=== PATIENT | female | born 1985 | race Caucasian/White ===

== ENCOUNTER → 2017-12-26 | Outpatient (CLI) | payer MEDICARE, MEDICAID | LOC: MAMMO 12:37 | DX: N63.20 Unspecified lump in the left breast, unspecified quadrant (principal); R59.0 Localized enlarged lymph nodes; N64.4 Mastodynia ==

== ENCOUNTER → 2018-01-22 | Outpatient (CLI) | payer MEDICARE, MEDICAID | LOC: CARDREHAB 10:56 | DX: R07.9 Chest pain, unspecified (principal) ==

== ENCOUNTER 2018-02-28 20:43 | Emergency (ER) | payer MEDICARE, MEDICAID ==
[~2018-02-28] VITALS: Ht 152.4 cm; Wt 81.8 kg
[2018-02-28 21:56] LABS: BASO # 0.1 (0.02-0.10); EOS # 0.3 (0.04-0.40); EOS % 2.4 % (1.0-5.0); HEMATOCRIT 40.7 % (37.0-47.0); HEMOGLOBIN 13.4 g/dL (12.5-16.0); LYMPH# 3.1 (1.50-4.00); MEAN CELL VOLUME 84 fl (78-100); MEAN CORPUSCULAR HEMOGLOBIN 28 pg (27-31); MEAN CORPUSCULAR HGB CONC 33 g/dL (33-37); MEAN PLATELET VOLUME 10.4 fl (7.4-10.4); MONO # 0.7 (0.20-0.80); NEU # 7.8 (1.40-6.50); PLATELET COUNT 256 K/mm3 (130-400); RED BLOOD COUNT 4.82 M/mm3 (4.10-5.30); WHITE BLOOD COUNT 12.1 K/mm3 (4.8-10.8)
[2018-02-28 22:08] LABS: CALCIUM 9.8 mg/dL (8.4-10.2); POTASSIUM 3.8 mmol/L (3.6-5.0)
[2018-02-28] MEDS ORDERED: LEVOTHYROXIN0.025 MG PO (22:37)
[2018-02-28] MEDS ORDERED: LATANOPROST 2.2.5 ML OU (22:37)
[2018-02-28] MEDS ORDERED: GLIPIZIDE ER10 M1 PO (22:37)
[2018-02-28] MEDS ORDERED: COMBIGAN 0.2%-0.5 ML OP (22:37)
[2018-02-28] MEDS ORDERED: METFOMIN HYDRO850 MG PO (22:44)
[2018-03-01] MEDS ORDERED: FIORICET 325 MG1 TAB PO (07:16)
[2018-03-01 09:25] VITALS: BP 124/80
== END 2018-03-01 09:30 | disposition home or self-care (01) ==
LOC: ED 20:43
PROVIDERS: Family Medicine
DX: I10 Essential (primary) hypertension (principal); R51 Headache; E11.9 Type 2 diabetes mellitus without complications; E78.5 Hyperlipidemia, unspecified; H40.9 Unspecified glaucoma; Z79.84 Long term (current) use of oral hypoglycemic drugs; Z79.899 Other long term (current) drug therapy
CPT/HCPCS: J0595; J1885; J2060; J2405

== ENCOUNTER 2018-03-28 10:00 | Outpatient (RCR) | payer MEDICARE, MEDICAID ==
[~2018-03-28 10:00] MED LIST: COMBIGAN 0.2%-0.5 ML OP; FIORICET 325 MG1 TAB PO; GLIPIZIDE ER10 M1 PO; LATANOPROST 2.2.5 ML OU; LEVOTHYROXIN0.025 MG PO; METFOMIN HYDRO850 MG PO
== END 2018-03-28 10:30 | disposition home or self-care (01) ==
LOC: PT 10:00
DX: M25.551 Pain in right hip (principal)
CPT/HCPCS: G8978-GP; G8979-GP

== ENCOUNTER → 2018-04-21 | Outpatient (CLI) | payer MEDICARE, MEDICAID | LOC: RAD 13:42 | DX: M25.551 Pain in right hip (principal) ==

== ENCOUNTER → 2018-05-05 | Outpatient (CLI) | payer MEDICARE, MEDICAID | LOC: RAD 12:00 | DX: M25.551 Pain in right hip (principal); G89.29 Other chronic pain ==

== ENCOUNTER → 2018-06-09 | Outpatient (CLI) | payer MEDICARE, MEDICAID | LOC: PT 10:53 | DX: M85.851 Other specified disorders of bone density and structure, right thigh (principal); M94.8X5 Other specified disorders of cartilage, thigh ==

== ENCOUNTER → 2018-06-16 | Outpatient (CLI) | payer MEDICARE, MEDICAID | LOC: RAD 12:35 | DX: M79.89 Other specified soft tissue disorders (principal); Z98.890 Other specified postprocedural states ==

== ENCOUNTER 2018-06-17 10:54 | Outpatient (RCR) | payer MEDICARE, MEDICAID | END 2018-06-17 12:00 | LOC: PT 10:54 | DX: S73.101A Unspecified sprain of right hip, initial encounter (principal); Z96.641 Presence of right artificial hip joint ==

== ENCOUNTER 2018-08-28 11:00 | Outpatient (RCR) | payer MEDICARE, MEDICAID | END 2018-08-28 11:30 | LOC: PT 11:00 | DX: Z98.890 Other specified postprocedural states (principal) ==

== ENCOUNTER → 2018-12-01 | Outpatient (CLI) | payer MEDICARE, MEDICAID ==
[2018-12-01 12:27] LABS: BASO # 0.1 (0.02-0.10); EOS # 0.2 (0.04-0.40); EOS % 2.4 % (1.0-5.0); HEMATOCRIT 43.1 % (37.0-47.0); HEMOGLOBIN 13.9 g/dL (12.5-16.0); LYMPH# 2.3 (1.50-4.00); MEAN CELL VOLUME 84 fl (78-100); MEAN CORPUSCULAR HEMOGLOBIN 27 pg (27-31); MEAN CORPUSCULAR HGB CONC 32 g/dL (33-37); MEAN PLATELET VOLUME 9.5 fl (7.4-10.4); MONO # 0.7 (0.20-0.80); NEU # 5.5 (1.40-6.50); PLATELET COUNT 392 K/mm3 (130-400); RED BLOOD COUNT 5.13 M/mm3 (4.10-5.30); WHITE BLOOD COUNT 8.8 K/mm3 (4.8-10.8)
[2018-12-01 12:58] LABS: ALBUMIN 4.9 g/dL (3.5-5.0); POTASSIUM 4.1 mmol/L (3.5-5.1)
[2018-12-01 12:59] LABS: CALCIUM 10.2 mg/dL (8.3-10.5)
[2018-12-01 13:01] LABS: TOTAL PROTEIN 8.5 g/dL (6.4-8.3)
[2018-12-01 13:02] LABS: TOTAL BILIRUBIN 0.3 mg/dL (0.2-1.2)
== END ==
LOC: RAD 12:10
PROVIDERS: Family Medicine
DX: Z00.00 Encounter for general adult medical examination without abnormal findings (principal); E03.9 Hypothyroidism, unspecified; E11.9 Type 2 diabetes mellitus without complications; E78.5 Hyperlipidemia, unspecified; E55.0 Rickets, active; E55.9 Vitamin D deficiency, unspecified

== ENCOUNTER → 2018-12-15 | Outpatient (CLI) | payer MEDICARE, MEDICAID | LOC: RAD 09:54 | DX: R06.00 Dyspnea, unspecified (principal) ==

== ENCOUNTER → 2018-12-26 | Outpatient (CLI) | payer MEDICARE, MEDICAID | LOC: RAD 10:45 | DX: J98.4 Other disorders of lung (principal); N20.0 Calculus of kidney; D35.02 Benign neoplasm of left adrenal gland ==

== ENCOUNTER 2019-05-24 18:34 | Emergency (ER) | payer MEDICARE, MEDICAID ==
[~2019-05-24] VITALS: Ht 149.9 cm; Wt 59.1 kg
[~2019-05-24 18:34] MED LIST changes: -COMBIGAN 0.2%-0.5 ML OP; +COMBIGAN 0.2%-0.5 ML OU
[2019-05-24] MEDS ORDERED: TYLENOL EXTRA500 M2 PO (18:47)
[2019-05-24 19:13] LABS: PH-URINE 5.5 (5.0 - 8.0); URINE APPEARANCE CLEAR; URINE BILIRUBIN NEGATIVE (NEGATIVE); URINE BLOOD NEGATIVE (NEGATIVE); URINE COLOR YELLOW; URINE GLUCOSE NEGATIVE (NEGATIVE); URINE KETONE NEGATIVE (NEGATIVE); URINE LEUKOCYTE ESTERASE NEGATIVE (NEGATIVE); URINE NITRATE NEGATIVE (NEGATIVE); URINE PROTEIN(semi-quant) 1+ mg/dL (NEGATIVE); URINE UROBILINOGEN NORMAL (NORMAL)
[2019-05-24 19:27] LABS: BASO # 0.1 (0.02-0.10); EOS # 0.3 (0.04-0.40); HEMATOCRIT 44.5 % (37.0-47.0); HEMOGLOBIN 14.2 g/dL (12.5-16.0); LYMPH# 2.7 (1.50-4.00); MEAN CELL VOLUME 84 fl (78-100); MEAN CORPUSCULAR HEMOGLOBIN 27 pg (27-31); MEAN CORPUSCULAR HGB CONC 32 g/dL (33-37); MEAN PLATELET VOLUME 9.8 fl (7.4-10.4); MONO # 0.7 (0.20-0.80); NEU # 5.6 (1.40-6.50); PLATELET COUNT 402 K/mm3 (130-400); RED BLOOD COUNT 5.28 M/mm3 (4.10-5.30); RED CELL DISTRIBUTION WIDTH 13.5 % (11.5-14.5); WHITE BLOOD COUNT 9.4 K/mm3 (4.8-10.8)
[2019-05-24 19:37] LABS: POTASSIUM 4.4 mmol/L (3.5-5.1)
[2019-05-24 19:39] LABS: CALCIUM 10.1 mg/dL (8.3-10.5)
[2019-05-24 20:14] VITALS: BP 140/89
== END 2019-05-24 20:14 | disposition home or self-care (01) ==
LOC: ED 18:34
PROVIDERS: Family Medicine
DX: R31.9 Hematuria, unspecified (principal); R10.31 Right lower quadrant pain; E11.9 Type 2 diabetes mellitus without complications; E78.5 Hyperlipidemia, unspecified; Z79.84 Long term (current) use of oral hypoglycemic drugs; Z90.49 Acquired absence of other specified parts of digestive tract; Z90.710 Acquired absence of both cervix and uterus

== ENCOUNTER → 2019-10-22 | Outpatient (CLI) | payer MEDICARE, MEDICAID ==
[~2019-10-22] MED LIST changes: +TYLENOL EXTRA500 M2 PO
== END ==
LOC: RAD 08:26
DX: M25.551 Pain in right hip (principal); Z96.641 Presence of right artificial hip joint; Z90.710 Acquired absence of both cervix and uterus

== ENCOUNTER → 2020-01-12 | Outpatient (CLI) | payer MEDICARE, MEDICAID | LOC: VAS 10:11 → RAD 10:15 | DX: Z13.6 Encounter for screening for cardiovascular disorders (principal); M79.605 Pain in left leg ==

== ENCOUNTER 2020-03-01 11:00 | Outpatient (RCR) | payer MEDICARE, MEDICAID | END 2020-03-01 11:30 | disposition home or self-care (01) | LOC: PT 11:00 | DX: Z98.890 Other specified postprocedural states (principal) ==

== ENCOUNTER 2020-12-07 09:23 | Outpatient (RCR) | payer MEDICARE, MEDICAID | END 2021-03-07 | disposition home or self-care (01) | LOC: PT | DX: M25.561 Pain in right knee (principal) ==

== ENCOUNTER → 2021-02-14 | Outpatient (CLI) | payer MEDICARE, MEDICAID | LOC: RAD 08:14 | DX: K76.0 Fatty (change of) liver, not elsewhere classified (principal) ==

== ENCOUNTER → 2021-02-27 | Outpatient (CLI) | payer MEDICARE, MEDICAID | LOC: MAMMO 02-23 12:15 | DX: R59.0 Localized enlarged lymph nodes (principal) ==

== ENCOUNTER → 2021-10-05 | Outpatient (CLI) | payer MEDICARE, MEDICAID | LOC: LAB 16:47 | DX: Z20.822 Contact with and (suspected) exposure to COVID-19 (principal) ==

== ENCOUNTER → 2021-10-20 | Outpatient (CLI) | payer MEDICARE, MEDICAID | LOC: LAB 19:46 | DX: Z20.822 Contact with and (suspected) exposure to COVID-19 (principal) ==

== ENCOUNTER → 2021-10-25 | Outpatient (CLI) | payer MEDICARE, MEDICAID | LOC: LAB 13:10 | DX: Z20.822 Contact with and (suspected) exposure to COVID-19 (principal) ==

== ENCOUNTER → 2021-11-01 | Outpatient (CLI) | payer MEDICARE, MEDICAID ==
[2021-11-01 11:17] LABS: ALBUMIN 4.3 g/dL (3.5-5.0); POTASSIUM 4.2 mmol/L (3.5-5.1)
[2021-11-01 11:19] LABS: CALCIUM 9.9 mg/dL (8.3-10.5)
[2021-11-01 11:20] LABS: TOTAL PROTEIN 7.4 g/dL (6.4-8.3)
[2021-11-01 11:22] LABS: TOTAL BILIRUBIN 0.3 mg/dL (0.2-1.2)
== END ==
LOC: LAB 10:52
PROVIDERS: Nurse Practitioner Family
DX: E11.59 Type 2 diabetes mellitus with other circulatory complications (principal); K76.0 Fatty (change of) liver, not elsewhere classified

== ENCOUNTER → 2022-02-12 | Outpatient (CLI) | payer MEDICARE, MEDICAID ==
[2022-02-12 08:57] LABS: ALBUMIN 4.2 g/dL (3.5-5.0)
[2022-02-12 08:58] LABS: CALCIUM 9.3 mg/dL (8.3-10.5)
[2022-02-12 09:01] LABS: TOTAL BILIRUBIN 0.3 mg/dL (0.2-1.2)
== END ==
LOC: LAB 08:26
PROVIDERS: Nurse Practitioner Family
DX: E11.59 Type 2 diabetes mellitus with other circulatory complications (principal); K76.0 Fatty (change of) liver, not elsewhere classified

== ENCOUNTER 2022-05-02 12:55 | Outpatient (RCR) | payer MEDICARE, MEDICAID | END 2022-05-08 | disposition home or self-care (01) | LOC: PT | DX: M75.112 Incomplete rotator cuff tear or rupture of left shoulder, not specified as traumatic (principal) ==

== ENCOUNTER → 2022-05-04 | Outpatient (CLI) | payer OTHER, MEDICAID ==
[2022-05-04 09:00] LABS: BASO # 0.05 K/mm3 (0.02-0.10); EOS # 0.28 K/mm3 (0.04-0.40); EOS % 3.2 % (1.0-5.0); HEMATOCRIT 40.8 % (37.0-47.0); HEMOGLOBIN 13.1 g/dL (12.5-16.0); LYMPH# 2.28 K/mm3 (1.50-4.00); MEAN CELL VOLUME 82 fl (78-100); MEAN CORPUSCULAR HEMOGLOBIN 27 pg (27-31); MEAN CORPUSCULAR HGB CONC 32 g/dL (33-37); MEAN PLATELET VOLUME 9.5 fl (7.4-10.4); MONO # 0.55 K/mm3 (0.20-0.80); NEU # 5.49 K/mm3 (1.40-6.50); PLATELET COUNT 309 K/mm3 (130-400); RED BLOOD COUNT 4.95 M/mm3 (4.10-5.30); RED CELL DISTRIBUTION WIDTH 13.3 % (11.5-14.5); WHITE BLOOD COUNT 8.7 K/mm3 (4.8-10.8)
[2022-05-04 09:10] LABS: ALBUMIN 4.6 g/dL (3.5-5.0)
[2022-05-04 09:11] LABS: CALCIUM 9.5 mg/dL (8.3-10.5)
[2022-05-04 09:14] LABS: TOTAL BILIRUBIN 0.4 mg/dL (0.2-1.2)
== END ==
LOC: LAB 08:48
DX: E11.9 Type 2 diabetes mellitus without complications (principal); E03.9 Hypothyroidism, unspecified; E55.9 Vitamin D deficiency, unspecified; R77.8 Other specified abnormalities of plasma proteins

== ENCOUNTER 2022-06-06 08:00 | Outpatient (RCR) | payer MEDICARE, MEDICAID | END 2022-07-06 | disposition home or self-care (01) | LOC: PT | DX: M75.112 Incomplete rotator cuff tear or rupture of left shoulder, not specified as traumatic (principal) ==

== ENCOUNTER → 2022-07-06 | Outpatient (CLI) | payer MEDICARE, MEDICAID | LOC: LAB 08:30 | DX: Z00.00 Encounter for general adult medical examination without abnormal findings (principal); E03.9 Hypothyroidism, unspecified ==

== ENCOUNTER → 2023-06-11 | Outpatient (CLI) | payer MEDICARE, MEDICAID | LOC: MAMMO 10:04 | DX: Z12.31 Encounter for screening mammogram for malignant neoplasm of breast (principal); Z80.3 Family history of malignant neoplasm of breast ==